=== PATIENT | female | born 1985 | race American Indian/Alaskan Native ===

== ENCOUNTER 2018-06-01 19:14 | Emergency (ER) | payer OTHER ==
--- NOTE | 2018-06-01 19:53 | Emergency Department Report ---
Blank Doc - Documentation Documentation: This is a 33-year-old female that presents with right pelvic pain. Stated had a positive test at home. Denies any vaginal bleeding. This initial assessment/diagnostic orders/clinical plan/treatment(s) is/are subject to change based on patient's health status, clinical progression and re- assessment by fellow clinical providers in the ED. Further treatment and workup at subsequent clinical providers discretion. Patient/guardians urged not to elope from the ED as their condition may be serious if not clinically assessed and managed. Initial orders include: 1- Patient sent to [facility] for further evaluation and treatment 2- labs 3- UA 4- US OB
[2018-06-01 20:56] LABS: Basophils % (Auto) 0.3 % (0.0-1.8); Eosinophils # (Auto) 0.3 K/mm3 (0.0-0.4); Eosinophils % (Auto) 3.1 % (0.0-4.3); Hematocrit 31.9 % (30.3-42.9); Hemoglobin 10.6 gm/dl (10.1-14.3); Lymphocytes # (Auto) 2.5 K/mm3 (1.2-5.4); Mean Corpuscular HGB Conc 33 % (30-34); Mean Corpuscular Volume 82 fl (79-97); Monocytes # (Auto) 0.8 K/mm3 (0.0-0.8); Monocytes % (Auto) 7.8 % (0.0-7.3); Platelet Count 331 K/mm3 (140-440); Red Cell Distribution Width 17.2 % (13.2-15.2)
[2018-06-01] MEDS ORDERED: TYLENOL PO ONE (21:10)
[2018-06-01] MEDS ORDERED: ZOFRAN ORAL LIQ PO ONE (21:10)
--- NOTE | 2018-06-01 21:10 | Emergency Department Report ---
ED Abdominal Pain HPI - General Chief Complaint: Abdominal Pain Stated Complaint: ABD PAIN/ Time Seen by Provider: 06/01/18 19:52 Source: patient, RN notes reviewed Mode of arrival: Ambulatory Limitations: No Limitations - History of Present Illness Initial Comments: [employer]: Dr Frausto This is a 33-year-old female. The patient is not known to this provider previously. She has a history of asthma and questionable fibroids. She believes that she is today, and if so, reports that she is 4, para 3, last menstrual period is April 14. She presents to the emergency room with complaint of 2 weeks intermittent abdominal pain. Abdominal pain is crampy, does not radiate anywhere, does not have exacerbating or relieving f actors, and is now resolved. She is not currently having abdominal pain. She denies headache, chest pain, neck pain, abdominal pain, shortness of breath, urinary symptoms, vaginal bleeding, vaginal discharge, and denies constipation. Intermittent nausea, no vomiting MD Complaint: abdominal pain -: Gradual, week(s) Severity scale (0 -10): 0 Consistency: now resolved Improves With: nothing Worsens With: nothing - Related Data Previous Rx's Medication Instructions Recorded Last Taken Type Acetaminophen [Tylenol Arthritis] 650 mg PO Q6HR PRN #30 tablet.er 06/01/18 Unknown Rx Doxylamine Succinate/Vit B6 1 each PO QHS PRN #30 tablet. 06/01/18 Unknown Rx [Ga Mcdonald 10-10 mg Tablet] Farzana Root [Farzana] 250 mg PO QID PRN #60 capsule 06/01/18 Unknown Rx Vit-Fe Fumar-FA [ 1 tab PO QDAY #30 tablet 06/01/18 Unknown Rx Vitamin] Allergies Allergy/AdvReac Type Severity Reaction Status Date / Time No Known Allergies Allergy Unverified 06/01/18 19:47 ED Review of Systems ROS: Stated complaint: ABD PAIN/ Other details as noted in HPI Constitutional: denies: fever, malaise Eyes: denies: eye discharge ENT: denies: epistaxis Respiratory: denies: cough Cardiovascular: denies: chest pain Gastrointestinal: abdominal pain, nausea. denies: vomiting, diarrhea, constipation Genitourinary: denies: urgency, dysuria, frequency Musculoskeletal: denies: back pain Skin: denies: lesions Neurological: denies: headache, weakness Psychiatric: denies: anxiety ED Past Medical Hx - Past Medical History Previous Medical History?: Yes Hx Asthma: Yes - Surgical History Past Surgical History?: Yes Additional Surgical History: - Social History Smoking Status: Never Smoker Substance Use Type: None - Medications Home Medications: Home Medications Medication Instructions Recorded Confirmed Last Taken Type Acetaminophen [Tylenol Arthritis] 650 mg PO Q6HR PRN #30 tablet.er 06/01/18 Unknown Rx Doxylamine Succinate/Vit B6 1 each PO QHS PRN #30 tablet.dr 06/01/18 Unknown Rx [Diclegis Dr 10-10 mg Tablet] Farzana Root [Farzana] 250 mg PO QID PRN #60 capsule 06/01/18 Unknown Rx Vit-Fe Fumar-FA [ 1 tab PO QDAY #30 tablet 06/01/18 Unknown Rx Vitamin] ED Physical Exam - General Limitations: No Limitations General appearance: alert, in no apparent distress - Head Head exam: Present: atraumatic, normocephalic - Eye Eye exam: Present: normal appearance, EOMI. Absent: nystagmus - ENT ENT exam: Present: normal exam, normal orophraynx, mucous membranes moist - Neck Neck exam: Present: normal inspection, full ROM. Absent: tenderness, meningismus - Respiratory Respiratory exam: Present: normal lung sounds bilaterally. Absent: respiratory distress - Cardiovascular Cardiovascular Exam: Present: regular rate, normal rhythm, normal heart sounds. Absent: bradycardia, tachycardia, irregular rhythm, systolic murmur, diastolic murmur, rubs, gallop - GI/Abdominal GI/Abdominal exam: Present: soft, normal bowel sounds. Absent: distended, tenderness, guarding, rebound, rigid, pulsatile mass - External exam: Absent: erythema, lesions, lacerations Speculum exam: Present: normal speculum exam. Absent: erythema, vaginal discharge, cervical discharge, vaginal bleeding Bi-manual exam: Present: normal bi-manual exam, other (chaperoned by nurse Jennifer Weber). Absent: cervical motion tendernes, adnexal tenderness, adnexal mass, uterine enlargement, uterine tenderness - Extremities Exam Extremities exam: Present: normal inspection, full ROM, other (2+ pulses noted in the bilateral upper, lower extremities. Compartments soft. No long bony tenderness. The pelvis is stable.). Absent: pedal edema, joint swelling, calf tenderness - Back Exam Back exam: Present: normal inspection, full ROM. Absent: tenderness, CVA tenderness (R), paraspinal tenderness, vertebral tenderness - Neurological Exam Neurological exam: Present: alert, oriented X3, other (Extraocular movements intact. Tongue midline. No facial droop. Facial sensation intact to light touch in the V1, V2, V3 distribution bilaterally. 5 and 5 strength in 4 extremities.. Sensation is intact to light touch in 4 extremities.). Absent: motor sensory deficit - Psychiatric Psychiatric exam: Present: normal affect, normal mood - Skin Skin exam: Present: warm, dry, intact, normal color. Absent: rash ED Course Vital Signs 06/01/18 19:56 Temperature 98.3 F Pulse Rate 74 Respiratory 18 Rate Blood Pressure 115/77 O2 Sat by Pulse 100 Oximetry ED Medical Decision Making - Lab Data Result diagrams: 06/01/18 20:13 06/01/18 20:13 Vital Signs 06/01/18 19:56 Temperature 98.3 F Pulse Rate 74 Respiratory 18 Rate Blood Pressure 115/77 O2 Sat by Pulse 100 Oximetry Lab Results 06/01/18 06/01/18 06/01/18 Range/Units 20:13 20:13 20:13 WBC 9.8 (4.5-11.0) K/mm3 RBC 3.90 (3.65-5.03) M/mm3 Hgb 10.6 (10.1-14.3) gm/dl Hct 31.9 (30.3-42.9) % MCV 82 (79-97) fl MCH 27 L (28-32) pg MCHC 33 (30-34) % RDW 17.2 H (13.2-15.2) % Plt Count 331 (140-440) K/mm3 Lymph % (Auto) 26.0 (13.4-35.0) % [place]pson % (Auto) 7.8 H (0.0-7.3) % Eos % (Auto) 3.1 (0.0-4.3) % Baso % (Auto) 0.3 (0.0-1.8) % Lymph # 2.5 (1.2-5.4) K/mm3 Upson # 0.8 (0.0-0.8) K/mm3 Eos # 0.3 (0.0-0.4) K/mm3 Baso # 0.0 (0.0-0.1) K/mm3 Seg Neutrophils % 62.8 (40.0-70.0) % Seg Neutrophils # 6.2 (1.8-7.7) K/mm3 Sodium 137 (137-145) mmol/L Potassium 3.5 L (3.6-5.0) mmol/L Chloride 102.3 (98-107) mmol/L Carbon Dioxide 24 (22-30) mmol/L Anion Gap 14 mmol/L BUN 10 (7-17) mg/dL Creatinine 0.4 L (0.7-1.2) mg/dL Estimated GFR > 60 ml/min BUN/Creatinine Ratio 25 % Glucose 77 (65-100) mg/dL Calcium 9.1 (8.4-10.2) mg/dL HCG, Quant 24217 H (0-4) mIU/mL Urine Color (Yellow) Urine Turbidity (Clear) Urine pH (5.0-7.0) Ur Specific [place] (1.003-1.030) Urine Protein (Negative) mg/dL Urine Glucose (UA) (Negative) mg/dL Urine Ketones (Negative) mg/dL Urine Blood (Negative) Urine Nitrite (Negative) Urine Bilirubin (Negative) Urine Urobilinogen (<2.0) mg/dL Ur Leukocyte Esterase (Negative) Urine WBC (Auto) (0.0-6.0) /HPF Urine RBC (Auto) (0.0-6.0) /HPF U Epithel Cells (Auto) (0-13.0) /HPF Urine Mucus /HPF Blood Type Antibody Screen 06/01/18 06/01/18 Range/Units 20:51 21:28 WBC (4.5-11.0) K/mm3 RBC (3.65-5.03) M/mm3 Hgb (10.1-14.3) gm/dl Hct (30.3-42.9) % MCV (79-97) fl MCH (28-32) pg MCHC (30-34) % RDW (13.2-15.2) % Plt Count (140-440) K/mm3 Lymph % (Auto) (13.4-35.0) % Upson % (Auto) (0.0-7.3) % Eos % (Auto) (0.0-4.3) % Baso % (Auto) (0.0-1.8) % Lymph # (1.2-5.4) K/mm3 [place] # (0.0-0.8) K/mm3 Eos # (0.0-0.4) K/mm3 Baso # (0.0-0.1) K/mm3 Seg Neutrophils % (40.0-70.0) % Seg Neutrophils # (1.8-7.7) K/mm3 Sodium (137-145) mmol/L Potassium (3.6-5.0) mmol/L Chloride (98-107) mmol/L Carbon Dioxide (22-30) mmol/L Anion Gap mmol/L BUN (7-17) mg/dL Creatinine (0.7-1.2) mg/dL Estimated GFR ml/min BUN/Creatinine Ratio % Glucose (65-100) mg/dL Calcium (8.4-10.2) mg/dL HCG, Quant (0-4) mIU/mL Urine Color Yellow (Yellow) Urine Turbidity Clear (Clear) Urine pH 6.0 (5.0-7.0) Ur Specific [place] 1.027 (1.003-1.030) Urine Protein <15 mg/dl (Negative) mg/dL Urine Glucose (UA) Neg (Negative) mg/dL Urine Ketones Neg (Negative) mg/dL Urine Blood Neg (Negative) Urine Nitrite Neg (Negative) Urine Bilirubin Neg (Negative) Urine Urobilinogen < 2.0 (<2.0) mg/dL Ur Leukocyte Esterase Neg (Negative) Urine WBC (Auto) 1.0 (0.0-6.0) /HPF Urine RBC (Auto) 2.0 (0.0-6.0) /HPF U Epithel Cells (Auto) 3.0 (0-13.0) /HPF Urine Mucus Few /HPF Blood Type O POSITIVE Antibody Screen Negative - Radiology Data Radiology results: report reviewed, image reviewed Print Report Referring Physician: JANETH LAZO Patient Name: JEWELS HOANG Date of : 1985 Sex: Female Report Date: 2018-06-01 Report Status: Finalized Findings [facility] [address] [place] [address] Ultrasound Report Signed Patient: JEWELS HOANG MR#: [id number] : 1985 Acct:[id number] Age/Sex: 33 / F ADM Date: 06/01/18 Loc: ED Attending Dr: Ordering Physician: JANETH LAZO NP Date of Service: 06/01/18 Procedure(s): US OB transvaginal Accession Number(s): [id number] cc: JANETH LAZO NP PROCEDURE: US OB TRANSVAGINAL TECHNIQUE: Real-time transvaginal sonography of the uterus, placenta, amniotic fluid, adnexa, and fetus was performed with image documentation. Measurements were obtained to determine age/size. M-mode Doppler was used to document heartbeat. HISTORY: right pelvic pain COMPARISONS: None . FINDINGS: CRL: 11.3 mm, which corresponds to a gestational age of: 7 weeks, 2 days. Yolk Sac: Appropriate for gestational age. . Embryonic Cardiac Activity: 150 bpm . Gestational Sac: Size and shape are appropriate for gestational age Amniotic fluid: Appropriate for gestational age. Right Ovary: 3.1 x 2.0 x 2.6 cm in size with normal echotexture . Left Ovary: Nonvisualized . Estimated delivery date: 01/16/2019 . IMPRESSION: Single live intrauterine gestation at approximately 7 weeks and 2 days . EDC by US 01/16/2019 . This document is electronically signed by Francisco J Gutierrez MD., June 01 2018 10:36:42 PM ET Transcribed By: [facility] [place] Dictated By: FRANCISCO J GUTIERREZ Electronically Authenticated By: FRANCISCO J GUTIERREZ Signed Date/Time: 06/01/182237 DD/ 23 TD/TT: 06/01/182224 - Medical Decision Making Differential diagnosis, including but not limited to: Ovarian cyst, , subchorionic hemorrhage, urinary tract infection, constipation, round ligament pain, nausea and vomiting of , now resolved Assessment and plan: 33-year-old female with resolved abdominal pain. Patient is afebrile with reassuring vital signs, with no right lower quadrant pain, no right upper quadrant pain, no tenderness in the aforementioned areas, negative Rovsing sign, negative Mayfield sign, benign superficial abdominal examination, benign gynecologic examination. Urinalysis is not consistent with a urinary tract infection. Pelvic ultrasound confirms intrauterine , Rh+, without evidence of bleed. The patient does not appear to have an emergent condition at this time. She will be started on appropriate vitamins, as needed nausea medication, and she will be instructed to follow-up with her outpatient assistant quality manager. Return precautions are reviewed. Critical care attestation.: If time is entered above; I have spent that time in minutes in the direct care of this critically ill patient, excluding procedure time. ED Disposition Clinical Impression: History of abdominal pain Qualifiers: Weeks of gestation: less than 8 weeks Qualified Code(s): Z3A.01 - Less than 8 weeks gestation of Disposition: DC-01 TO HOME OR SELFCARE Is pt being admited?: No Does the pt Need Aspirin: No Condition: Stable Instructions: (ED) Additional Instructions: Cultures were sent today, and results of the available in the next 3-5 days. Have your assistant quality manager contact the medical records department to obtain culture results. Take the medications as needed/directed. Advance diet as tolerated. Avoid strenuous physical activities, and follow up with your [employer] physician as soon as possible to initiate outpatient care. Avoid consumption of alcohol, and cigarettes, and return to the emergency room right away with new pain, worsening pain, migration of pain, projectile vomiting, change in mental status, confusion, inability to tolerate liquid feeds, new, worsening or differ ent symptoms. Referrals: CHANNING FRAUSTO MD [Staff Physician] - 3-5 Days
[2018-06-01 21:12] LABS: BUN/Creatinine Ratio 25; Blood Urea Nitrogen 10 mg/dL (7-17); Calcium 9.1 mg/dL (8.4-10.2); Hemolysis Index 1
[2018-06-01 21:14] LABS: Bilirubin,Urine NEG (Negative); Blood,Urine NEG (Negative); Color,Urine Yellow (Yellow); Mucus,Urine FEW /HPF; Protein,Urine <15 mg/dL mg/dL (Negative); Urobilinogen,Urine < 2.0 mg/dL (<2.0)
--- NOTE | 2018-06-01 22:38 | Ultrasound Report ---
PROCEDURE: US OB TRANSVAGINAL TECHNIQUE: Real-time transvaginal sonography of the uterus, placenta, amniotic fluid, adnexa, and fe tus was performed with image documentation. Measurements were obtained to determine age/size. M -mode Doppler was used to document heartbeat. HISTORY: right pelvic pain COMPARISONS: None . FINDINGS: CRL: 11.3 mm, which corresponds to a gestational age of: 7 weeks, 2 days. Yolk Sac: Appropriate for gestational age. . Embryonic Cardiac Activity: 150 bpm . Gestational Sac: Size and shape are appropriate for gestational age Amniotic fluid: Appropriate for gestational age. Right Ovary: 3.1 x 2.0 x 2.6 cm in size with normal echotexture . Left Ovary: Nonvisualized . Estimated delivery date: 01/16/2019 . IMPRESSION: Single live intrauterine gestation at approximately 7 weeks and 2 days . EDC by US 12/24 . This document is electronically signed by Hunter Gutierrez MD., June 01 2018 10:36:42 PM ET
--- NOTE | 2018-06-01 22:38 | Ultrasound Report ---
PROCEDURE: US OB <= 14 WEEKS FETUS TECHNIQUE: Real-time transabdominal sonography of the uterus, placenta, amniotic fluid, adnexa, and fetus was performed with image documentation. Measurements were obtained to determine age/size. M-mode Doppler was used to document heartbeat. ADDITIONAL GESTATION: None. HISTORY: right pelvic pain COMPARISONS: None . FINDINGS: CRL: 11.3 mm, which corresponds to a gestational age of: 7 weeks, 2 days. Yolk Sac: Appropriate for gestational age. . Embryonic Cardiac Activity: 150 bpm . Gestational Sac: Size and shape are appropriate for gestational age Amniotic fluid: Appropriate for gestational age. Right Ovary: 3.1 x 2.0 x 2.6 cm in size with normal echotexture . Left Ovary: Nonvisualized . Estimated delivery date: 01/16/2019 . IMPRESSION: Single live intrauterine gestation at approximately 7 weeks and 2 days . EDC by US 12/24 . This document is electronically signed by Hunter Gutierrez MD., June 01 2018 10:35:57 PM ET
[2018-06-01 23:40] VITALS: BP 120/80
== END 2018-06-02 00:15 | disposition home or self-care (01) ==
LOC: ED 19:14
DX: O26.891 Other specified pregnancy related conditions, first trimester (principal); R10.9 Unspecified abdominal pain; J45.909 Unspecified asthma, uncomplicated
CPT/HCPCS: 36415; 76801; 76817; 80048; 81001; 84702; 85025; 86850; 86900; 86901; 87210; 87591; 99284; Q0162